=== PATIENT | female | born 1980 | race Hispanic/Latino ===

== ENCOUNTER 2018-07-21 18:31 | Emergency (ER) | payer OTHER ==
[2018-07-21] MEDS ORDERED: HYDROCODONE/APAP 5/325 MG TAB ONE ×2 (19:23→21:31)
[2018-07-21] MEDS ORDERED: IBUPROFEN 400 MG TAB ONE (20:17)
--- NOTE | 2018-07-21 20:45 | RAD REPORT ---
EXAM DESCRIPTION: RAD - Ankle Right 3 View - 07/21/2018 7:30 pm CLINICAL HISTORY: PAIN Trauma COMPARISON: Ankle Left 3 View dated 07/21/2018 FINDINGS: Mild soft tissue swelling is present about the ankle. No acute fracture or dislocation see n. Vascular calcifications evident.
--- NOTE | 2018-07-21 20:45 | RAD REPORT ---
EXAM DESCRIPTION: RAD - Ankle Left 3 View - 07/21/2018 7:30 pm CLINICAL HISTORY: PAIN Trauma COMPARISON: No comparisons FINDINGS: Soft tissue swelling is seen about the ankle. Small curvilinear bony density seen inferior to the distal fibula is likely avulsion fracture fragment.
--- NOTE | 2018-07-21 20:59 | ER ---
Nurse's Notes [facility] Name: Lila Mcgee Age: 37 yrs Sex: Female : 1980 Arrival Date: 07/21/2018 Time: 18:39 Bed 13 Private MD: Diagnosis: Sprain of other ligament of right ankle;Stress fracture, left ankle Presentation: 07/21 18:35 Presenting complaint: EMS states: Pt. was at [employer] trying out the treadmill and when rb1 she went to get off she twisted both ankles and heard a pop. No deformities noted. Pt. denies hitting her head or LOC. A \T\ O x 4, vital signs were stable. BGL 404, pt. did not take any insulin this morning. NKDA. Administered Tylenol 1000 mg PO x 1. Pain 8/10. Transition of care: patient was not received from another setting of care. Onset of symptoms was July 21, 2018 at 18:15. Risk Assessment: Do you want to hurt yourself or someone else? Patient reports no desire to harm self or others. Initial Sepsis Screen: Does the patient meet any 2 criteria? No. Patient's initial sepsis screen is negative. Does the patient have a suspected source of infection? No. Patient's initial sepsis screen is negative. Care prior to arrival: Medication(s) given: Tylenol, 1000 mg. 18:35 Method Of Arrival: EMS: [facility] rb1 18:35 Acuity: [place] 3 rb1 Triage Assessment: 18:35 General: Appears distressed, uncomfortable, obese, Behavior is cooperative, anxious, rb1 crying. Pain: Complains of pain in bilateral ankles Pain currently is 8 out of 10 on a pain scale. Aggravated by weight bearing. Neuro: Level of Consciousness is awake, alert, obeys commands, Oriented to person, place, time, situation. Cardiovascular: Capillary refill < 3 seconds is brisk in bilateral toes. Respiratory: Airway is patent Respiratory effort is even, unlabored, Respiratory pattern is regular, symmetrical. GI: No signs and/or symptoms were reported involving the gastrointestinal system. : No signs and/or symptoms were reported regarding the genitourinary system. Derm: Skin is dry, Skin is normal, Skin temperature is warm. Musculoskeletal: Range of motion: limited in bilateral ankles. 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 - Social history:: Smoking status: Patient/guardian denies using tobacco. - Ebola Screening: : Patient negative for fever greater than or equal to 101.5 degrees Fahrenheit, and additional compatible Ebola Virus Disease symptoms. Screenin:35 Abuse screen: Denies threats or abuse. Nutritional screening: No deficits noted. rb1 Tuberculosis screening: No symptoms or risk factors identified. Fall Risk Fall in past 12 months (25 points). Secondary diagnosis (15 points) impaired mobility, No IV (0 pts). Ambulatory Aid- None/Bed Rest/Nurse Assist (0 pts). Gait- Impaired (20 pts.). Mental Status- Oriented to own ability (0 pts). Total Rocha Fall Scale indicates High Risk Score (45 or more points). Fall prevention measures have been instituted. Side Rails Up X 2 Placed Close to Nursing Station 1:1 Attendant Assigned Frequent Obs/Assessments Occuring Family Present and informed to notify staff if the need to leave the bedside As available patient and family educated on Fall Prevention Program and Strategies. Assessment: 18:35 General: See triage assessment. rb1 19:15 Reassessment: Patient appears in no apparent distress at this time. Patient and/or jb4 family updated on plan of care and expected duration. Pain level reassessed. Patient is alert, oriented x 3, equal unlabored respirations, skin warm/dry/pink. 20:07 Reassessment: Patient appears in no apparent distress at this time. Patient and/or jb4 family updated on plan of care and expected duration. Pain level reassessed. Patient is alert, oriented x 3, equal unlabored respirations, skin warm/dry/pink. Pt reports a decrease in pain to the right ankle, and an increase to the left, provider notified, see [facility] for orders. 21:37 Reassessment: Patient appears in no apparent distress at this time. Patient and/or jb4 family updated on plan of care and expected duration. Pain level reassessed. Patient is alert, oriented x 3, equal unlabored respirations, skin warm/dry/pink. Pt discharged via wheelchair with significant other. Provider checked Orthoglass splint. Verbalized understanding of discharge instructions. Vital Signs: 18:35 BP 157 / 98; Pulse 89; Resp 20; Temp 97.6(O); Pulse Ox 100% on R/A; Weight 107.5 kg rb1 (R); Height 5 ft. 8 in. (172.72 cm) (R); Pain 8/10; 19:30 BP 119 / 66; Pulse 92; Resp 16; Pulse Ox 99% on R/A; jb4 21:00 BP 136 / 74; Pulse 99; Resp 16; Pulse Ox 100% on R/A; jb4 18:35 Body Mass Index 36.04 (107.50 kg, 172.72 cm) [facility] ED Course: 18:35 Arm band placed on right wrist. rb1 18:35 Patient has correct armband on for positive identification. Bed in low position. Call rb1 light in reach. Side rails up X 1. Pulse ox on. NIBP on. 18:39 Patient arrived in ED. rb1 18:43 Triage completed. rb1 18:43 Maged Ly MD is Attending Physician. gs 18:56 Report given to JEANMARIE Espinoza. rb1 19:08 Roger Perla, RN is Primary Nurse. jb4 19:28 Ankle Left 3 View XRAY In Process Unspecified. EDMS 19:28 Ankle Right 3 View XRAY In Process Unspecified. EDMS 20:58 Shaun Powell MD is Referral Physician. gs 21:17 Orthoglass splint: Posterior short lleg splint applied on left leg. oe 21:40 No provider procedures requiring assistance completed. Patient did not have IV access jb4 during this emergency room visit. Administered Medications: 19:15 Drug: [place] 5 mg-325 mg 1 tabs Route: PO; jb4 20:07 Follow up: Response: PT reports pain has improved in the right ankle but is getting jb4 worse in the left. Provider notified. 20:07 Drug: Motrin 800 mg Route: PO; jb4 20:53 Follow up: Response: No adverse reaction; Pain is decreased jb4 21:20 Drug: [place] 5 mg-325 mg 1 tabs Route: PO; jb4 21:42 Follow up: Response: No adverse reaction; Medication administered at discharge. jb4 Outcome: 20:58 Discharge ordered by . eleazar 21:40 Discharged to home via wheelchair, with crutches, with significant other. jb4 21:40 Condition: stable 21:40 Discharge instructions given to patient, significant other, Instructed on discharge instructions, follow up and referral plans. medication usage, crutch walking, Demonstrated understanding of instructions, follow-up care, medications, crutch walking, Prescriptions given X 1. 21:42 Patient left the ED. jb4 Signatures: Dispatcher [employer] EDMS Adela Zapata RN RN Roger Moran RN RN jb4 Naresh Kinney Gregory, MD MD gs
--- NOTE | 2018-07-21 20:59 | EDPHYS ---
Physician Documentation [facility] Name: Lila Mcgee Age: 37 yrs Sex: Female : 1980 Arrival Date: 07/21/2018 Time: 18:39 Bed 13 Private MD: ED Physician Maged Ly HPI: 07/21 20:50 This 37 yrs old Female presents to ER via EMS with complaints of Ankle Injury. gs 20:50 The patient presents with an injury, pain. The complaints affect the left ankle, right gs ankle. Onset: The symptoms/episode began/occurred acutely, just prior to arrival. Context: The problem was sustained at a store, resulted from the patient tripping, The mechanism of injury involved eversion of the affected ankle. Associated signs and symptoms: Pertinent positives: swelling, Pertinent negatives: numbness. Modifying factors: The symptoms are alleviated by nothing, the symptoms are aggravated by weight bearing, movement. Severity of symptoms: At their worst the symptoms were severe, in the emergency department the symptoms are unchanged. The patient has not experienced similar symptoms in the past. The patient has not recently seen a physician. 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 - Social history:: Smoking status: Patient/guardian denies using tobacco. - Ebola Screening: : Patient negative for fever greater than or equal to 101.5 degrees Fahrenheit, and additional compatible Ebola Virus Disease symptoms. ROS: 20:50 All other systems are negative. gs Exam: 20:50 Head/Face: Normocephalic, atraumatic. Eyes: Pupils equal round and reactive to light, gs extra-ocular motions intact. Lids and lashes normal. Conjunctiva and sclera are non-icteric and not injected. Cornea within normal limits. Periorbital areas with no swelling, redness, or edema. ENT: Nares patent. No nasal discharge, no septal abnormalities noted. Tympanic membranes are normal and external auditory canals are clear. Oropharynx with no redness, swelling, or masses, exudates, or evidence of obstruction, uvula midline. Mucous membranes moist. Neck: Trachea midline, no thyromegaly or masses palpated, and no cervical lymphadenopathy. Supple, full range of motion without nuchal rigidity, or vertebral point tenderness. No Meningismus. Chest/axilla: Normal chest wall appearance and motion. Nontender with no deformity. No lesions are appreciated. Cardiovascular: Regular rate and rhythm with a normal S1 and S2. No gallops, murmurs, or rubs. Normal PMI, no JVD. No pulse deficits. Respiratory: Lungs have equal breath sounds bilaterally, clear to auscultation and percussion. No rales, rhonchi or wheezes noted. No increased work of breathing, no retractions or nasal flaring. Abdomen/GI: Soft, non-tender, with normal bowel sounds. No distension or tympany. No guarding or rebound. No evidence of tenderness throughout. Back: No spinal tenderness. No costovertebral tenderness. Full range of motion. Skin: Warm, dry with normal turgor. Normal color with no rashes, no lesions, and no evidence of cellulitis. Neuro: Awake and alert, GCS 15, oriented to person, place, time, and situation. Cranial nerves II-XII grossly intact. Motor strength 5/5 in all extremities. Sensory grossly intact. Cerebellar exam normal. Normal gait. 20:50 Constitutional: The patient appears alert, awake, uncomfortable. 20:50 Musculoskeletal/extremity: Circulation is intact in all extremities. Sensation intact. Joints: the left ankle and right ankle displays pain at rest, painful range of motion, swelling, tenderness. Vital Signs: 18:35 BP 157 / 98; Pulse 89; Resp 20; Temp 97.6(O); Pulse Ox 100% on R/A; Weight 107.5 kg rb1 (R); Height 5 ft. 8 in. (172.72 cm) (R); Pain 8/10; 19:30 BP 119 / 66; Pulse 92; Resp 16; Pulse Ox 99% on R/A; jb4 21:00 BP 136 / 74; Pulse 99; Resp 16; Pulse Ox 100% on R/A; jb4 18:35 Body Mass Index 36.04 (107.50 kg, 172.72 cm) rb1 MDM: 19:02 Patient medically screened. 20:50 Differential diagnosis: fracture, sprain. Data reviewed: vital signs, nurses notes. Counseling: I had a detailed discussion with the patient and/or guardian regarding: the historical points, exam findings, and any diagnostic results supporting the discharge/admit diagnosis, radiology results, the need for outpatient follow up. Response to treatment: the patient's symptoms have mildly improved after treatment, and as a result, I will discharge patient. 07/21 19:08 Order name: Ankle Left 3 View XRAY 07/21 19:08 Order name: Ankle Right 3 View XRAY 07/21 20:49 Order name: Splint - Ankle: Posterior: left; Complete Time: 21:21 07/21 21:21 Order name: Crutches; Complete Time: 21:28 jb4 Administered Medications: 19:15 Drug: [place] 5 mg-325 mg 1 tabs Route: PO; jb4 20:07 Follow up: Response: PT reports pain has improved in the right ankle but is getting jb4 worse in the left. Provider notified. 20:07 Drug: Motrin 800 mg Route: PO; jb4 20:53 Follow up: Response: No adverse reaction; Pain is decreased jb4 21:20 Drug: [place] 5 mg-325 mg 1 tabs Route: PO; jb4 21:42 Follow up: Response: No adverse reaction; Medication administered at discharge. jb4 Disposition: 07/21/18 20:58 Discharged to Home. Impression: Sprain of other ligament of right ankle, Stress fracture, left ankle. - Condition is Stable. - Discharge Instructions: Ankle Sprain, [id number], Ankle Fracture, [id number]. - Prescriptions for Tylenol- Codeine #4 300-60 mg Oral Tablet - take 1 tablet by ORAL route every 6 hours As needed; 10 tablet. - Work release form, Medication Reconciliation Form, Thank You Letter, Antibiotic Education, Prescription Opioid Use form. - Follow up: Private Physician; When: 2 - 3 days; Reason: Re-evaluation by your physician. Follow up: Shaun Powell MD; When: 2 - 3 days; Reason: Re-evaluation by your physician. Signatures: Dispatcher [employer] EDMS Adela Zapata, RN RN rb1 Roger Perla RN RN jb4 Maged Ly MD MD gs Corrections: (The following items were deleted from the chart) 21:42 20:58 07/21/2018 20:58 Discharged to Home. Impression: Sprain of other ligament of jb4 right ankle; Stress fracture, left ankle. Condition is Stable. Forms are Medication Reconciliation Form, Thank You Letter, Antibiotic Education, Prescription Opioid Use. Follow up: Private Physician; When: 2 - 3 days; Reason: Re-evaluation by your physician. Follow up: Shaun Powell; When: 2 - 3 days; Reason: Re-evaluation by your physician. gs
[2018-07-21 22:18] VITALS: TEMP 97.6
[2018-07-21 22:20] VITALS: BP 136/74; O2SAT 100
== END 2018-07-21 21:42 | disposition home or self-care (01) ==
LOC: ER 18:31
PROC: 2W3RX1Z Immobilization of Left Lower Leg using Splint (ICD-10-PCS; principal; 2018-07-21)
DX: S93.491A Sprain of other ligament of right ankle, initial encounter (principal); M84.372A Stress fracture, left ankle, initial encounter for fracture; W01.0XXA Fall on same level from slipping, tripping and stumbling without subsequent striking against object, initial encounter; Y92.512 Supermarket, store or market as the place of occurrence of the external cause; E11.9 Type 2 diabetes mellitus without complications; E03.9 Hypothyroidism, unspecified; F41.9 Anxiety disorder, unspecified; Z79.4 Long term (current) use of insulin
CPT/HCPCS: 99284

== ENCOUNTER 2019-05-18 23:35 | Emergency (ER) | payer OTHER ==
[2019-05-19] MEDS ORDERED: MORPHINE 4 MG/ML SYR ONE ×2 (00:23→01:43)
[2019-05-19] MEDS ORDERED: ONDANSETRON 4 MG/2 ML VIAL ONE ×2 (00:23→01:43)
[2019-05-19] MEDS ORDERED: MAGNE/ALUM HYDROXD 30 ML UCUP ONE (00:34)
[2019-05-19] MEDS ORDERED: LIDOCAINE VISCOUS 2% SOLN 15 ML UDC ONE (00:34)
[2019-05-19 00:42] LABS: Absolute Lymphocytes (CBC) 1.7 K/uL (0.7-4.9); Hematocrit 41.1 % (36.0-45.0); Lymphocytes % 25.3 % (15.3-44.8); MPV 8.6 fL (7.6-11.3); Protime INR 0.97
[2019-05-19 01:11] LABS: ALT/SGPT 32 U/L (12-78); AST/SGOT 52 U/L (15-37); Albumin 3.5 g/dL (3.4-5.0); Alkaline Phosphatase 50 U/L (45-117); BUN Blood Urea Nitrogen 12 mg/dL (7-18); Bicarbonate 23 mmol/L (21-32); Bilirubin Direct 0.1 mg/dL (0-0.2); Bilirubin Total 0.4 mg/dL (0.2-1.0); Glucose Level 215 mg/dL (74-106); Potassium 3.7 mmol/L (3.5-5.1); Protein, Total 7.2 g/dL (6.4-8.2); Sodium Level 137 mmol/L (136-145)
[2019-05-19 01:12] LABS: Magnesium 1.9 mg/dL (1.8-2.4); NT PRO-BNP 16 pg/mL (<125); Troponin (Emerg Dept Use Only) < 0.02 ng/mL (0.0-0.045)
[2019-05-19 01:39] LABS: Lipase 118 U/L (73-393)
[2019-05-19] MEDS ORDERED: MORPHINE 2 MG/ML SYR ONE (03:13)
--- NOTE | 2019-05-19 03:32 | EDPHYS ---
Physician Documentation [facility] Name: Lila Mcgee Age: 38 yrs Sex: Female : 1980 Arrival Date: 05/18/2019 Time: 23:37 Bed 20 Private MD: ED Physician Andrea Robison HPI: 05/19 01:28 This 38 yrs old Female presents to ER via Ambulatory with complaints of Chest tw4 Pain, Abdominal Pain, Nausea. 01:28 The patient or guardian reports chest pain that is located primarily in the anterior tw4 chest wall. The pain does not radiate. Associated signs and symptoms: The patient has no apparent associated signs or symptoms. The chest pain is described as dull. Modifying factors: The symptoms are alleviated by nothing. the symptoms are aggravated by nothing. The patient has not experienced similar symptoms in the past. 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 - Coronavirus screen:: The patient has NOT traveled to [place] in the past 14 days. Proceed with normal triage process as indicated. - Social history:: Smoking status: Patient denies any tobacco usage or history of. Patient/guardian denies using alcohol, street drugs, IV drugs. - Ebola Screening: : No symptoms or risks identified at this time. ROS: 05/19 01:28 Constitutional: Negative for fever, chills, and weight loss, Eyes: Negative for injury, tw4 pain, redness, and discharge, Neck: Negative for injury, pain, and swelling, Respiratory: Negative for shortness of breath, cough, wheezing, and pleuritic chest pain, Back: Negative for injury and pain, MS/Extremity: Negative for injury and deformity, Skin: Negative for injury, rash, and discoloration, Neuro: Negative for headache, weakness, numbness, tingling, and seizure. Cardiovascular: Positive for chest pain, Negative for edema, orthopnea, palpitations, paroxysmal nocturnal dyspnea. Abdomen/GI: Positive for abdominal pain, nausea, Negative for nausea and vomiting, nausea, vomiting, and diarrhea, vomiting, diarrhea, constipation, abdominal cramps, abdominal distension, anorexia, dysphagia, hematemesis, black/tarry stool, rectal pain. Exam: :28 Constitutional: This is a well developed, well nourished patient who is awake, alert, tw4 and in no acute distress. Head/Face: Normocephalic, atraumatic. Chest/axilla: Normal chest wall appearance and motion. Nontender with no deformity. No lesions are appreciated. Cardiovascular: Regular rate and rhythm with a normal S1 and S2. No gallops, murmurs, or rubs. Normal PMI, no JVD. No pulse deficits. Respiratory: Lungs have equal breath sounds bilaterally, clear to auscultation and percussion. No rales, rhonchi or wheezes noted. No increased work of breathing, no retractions or nasal flaring. Back: No spinal tenderness. No costovertebral tenderness. Full range of motion. MS/ Extremity: Pulses equal, no cyanosis. Neurovascular intact. Full, normal range of motion. Neuro: Awake and alert, GCS 15, oriented to person, place, time, and situation. Cranial nerves II-XII grossly intact. Motor strength 5/5 in all extremities. Sensory grossly intact. Cerebellar exam normal. Normal gait. :28 Abdomen/GI: Inspection: abdomen appears normal, Bowel sounds: normal, Palpation: mild abdominal tenderness, in the epigastric area. Vital Signs: 05/18 23:50 BP 150 / 102; Pulse 95; Resp 18; Temp 97.6; Pulse Ox 97% on R/A; Weight 92.99 kg; mg2 Height 5 ft. 8 in. (172.72 cm); Pain 11/14; 05/19 01:30 BP 115 / 79; Pulse 18; Resp 98; Pulse Ox 99% on R/A; wh 02:30 BP 121 / 70; Pulse 97; Resp 18; Pulse Ox 100% on R/A; wh 03:30 BP 121 / 80; Pulse 99; Resp 18; Pulse Ox 96% on R/A; 05/18 23:50 Body Mass Index 31.17 (92.99 kg, 172.72 cm) mg2 MDM: 05/18 23:50 Patient medically screened. tw05/19 03:27 Differential diagnosis: cholecystitis, Cholelithiasis costochondritis, esophagitis, tw4 gastritis, gastroesophageal reflux disease (GERD), pancreatitis, peptic ulcer disease. HEART Score: History: Slightly Suspicious (0), ECG: Normal (0), Age: < or = 45 years (0), Risk Factors: No Risk Factors Known (0), Troponin: < or = 1 x Normal Limit (0), Total Score = 0. Data reviewed: vital signs, nurses notes. Data reviewed: lab test result(s), cardiac enzymes, CBC, electrolytes, hepatic panel, radiologic studies, CT scan, plain films. Data interpreted: Pulse oximetry: Interpretation: normal. Test interpretation: by ED physician or midlevel provider: ECG, plain radiologic studies. Counseling: I had a detailed discussion with the patient and/or guardian regarding: the historical points, exam findings, and any diagnostic results supporting the discharge/admit diagnosis, lab results, radiology results. 05/18 23:52 Order name: Basic Metabolic Panel 05/18 23:52 Order name: CBC with Diff 05/18 23:52 Order name: LFT's [facility] 05/18 23:52 Order name: Magnesium 05/18 23:52 Order name: NT PRO-BNP 05/18 23:52 Order name: PT-INR [facility] 05/18 23:52 Order name: Troponin (emerg Dept Use Only) 05/19 00:44 Order name: CBC with Automated Diff; Complete Time: 01:20 EDMS 05/19 00:44 Order name: Protime (+INR); Complete Time: 01:20 EDMS 05/19 01:27 Interpretation: Within normal limits. 05/19 01:14 Order name: Basic Metabolic Panel; Complete Time: 01:58 EDMS 05/19 01:20 Interpretation: GLUC 215; CRE 0.54. 05/19 01:14 Order name: Liver (Hepatic) Function; Complete Time: 01:58 EDMS 05/19 01:26 Interpretation: Normal except: AST 52; GLOB 3.7; A/G 0.9. 05/19 01:14 Order name: Troponin (Emerg Dept Use Only); Complete Time: 01:58 EDMS 05/19 01:27 Interpretation: Within normal limits: TROPED < 0.02. 05/19 01:14 Order name: NT PRO-BNP; Complete Time: 01:58 EDMS 05/19 01:27 Interpretation: Within normal limits: NT PRO-BNP 16. 05/19 01:14 Order name: Magnesium; Complete Time: 01:58 EDMS 05/19 01:28 Interpretation: Within normal limits: MG 1.9. 05/18 23:52 Order name: XRAY Chest (1 view) 05/18 23:52 Order name: EKG; Complete Time: 23:53 05/18 23:52 Order name: Cardiac monitoring; Complete Time: 00:34 05/18 23:52 Order name: EKG - Nurse/Tech; Complete Time: 00:34 05/18 23:52 Order name: IV Saline Lock; Complete Time: 00:34 05/18 23:52 Order name: Labs collected and sent; Complete Time: 00:34 05/18 23:52 Order name: O2 Per Protocol; Complete Time: 00:34 05/18 23:52 Order name: O2 Sat Monitoring; Complete Time: 00:34 05/19 01:28 Order name: Lipase 05/19 01:40 Order name: Lipase; Complete Time: 01:58 EDMS 05/19 02:02 Order name: CT Abd/Pelvis - IV Contrast Only tw4 EC:52 Rate is 88 beats/min. Rhythm is regular. QRS Keyes is Normal. NM interval is normal. QRS tw4 interval is normal. QT interval is normal. No Q waves. T waves are Normal. No ST changes noted. Clinical impression: Normal ECG. Interpreted by me. Reviewed by me. Administered Medications: 00:34 Drug: GI Cocktail without - (Maalox Suspension 30 ml, Lidocaine Liquid 2 % 15 wh ml) Route: PO; 03:55 Follow up: Response: No adverse reaction 01:42 Drug: morphine 4 mg Route: IVP; Site: right antecubital; 03:13 Follow up: Response: No adverse reaction; Pain is decreased; RASS: Alert and Calm (0) 01:44 Drug: Zofran 4 mg Route: IVP; Site: right antecubital; 03:13 Follow up: Response: No adverse reaction; Nausea is decreased 03:14 Drug: morphine 2 mg Route: IVP; Site: right antecubital; 03:53 Follow up: Response: No adverse reaction; Pain is decreased; RASS: Alert and Calm (0) Disposition: 05/19/19 03:31 Discharged to Home. Impression: Gastritis, unspecified, without bleeding, Abdominal tenderness. - Condition is Stable. - Discharge Instructions: Gastritis, Adult, Abdominal Pain, Adult, [id number]. - Prescriptions for Bentyl 20 mg Oral Tablet - take 1 tablet by ORAL route every 6 hours As needed; 20 tablet. Protonix 40 mg Oral Tablet - take 1 tablet by ORAL route once daily; 30 tablet. Zofran 4 mg Oral Tablet - take 1 tablet by ORAL route every 12 hours As needed; 6 tablet. - Medication Reconciliation Form, Thank You Letter, Antibiotic Education, Prescription Opioid Use form. - Follow up: Private Physician; When: Upon discharge from the Emergency Department; Reason: Recheck today's complaints, Continuance of care, Re-evaluation by your physician. Follow up: Germán Sutherland MD; When: Upon discharge from the Emergency Department; Reason: If symptoms return, Recheck today's complaints, Continuance of care, Re-evaluation by your physician. Follow up: Baltazar Del Rio MD; When: Upon discharge from the Emergency Department; Reason: If symptoms return, Recheck today's complaints, Continuance of care, Re-evaluation by your physician. Follow up: Alberto Fernández MD; When: Upon discharge from the Emergency Department; Reason: If symptoms return, Recheck today's complaints, Continuance of care, Re-evaluation by your physician. Follow up: Seng Patricia MD; When: Upon discharge from the Emergency Department; Reason: If symptoms return, Recheck today's complaints, Continuance of care, Re-evaluation by your physician. - Problem is an ongoing problem. - Symptoms have improved. Signatures: Dispatcher [employer] EDMS HabaloAneudy Terrence, MD MD tw4 Rob Clay, RN RN mg2 Corrections: (The following items were deleted from the chart) 02:01 01:27 Within normal limits. tw4 tw4 03:32 03:31 05/19/2019 03:31 Discharged to Home. Impression: Gastritis, unspecified, without tw4 bleeding; Abdominal tenderness. Condition is Stable. Forms are Medication Reconciliation Form, Thank You Letter, Antibiotic Education, Prescription Opioid Use. Follow up: Private Physician; When: Upon discharge from the Emergency Department; Reason: Recheck today's complaints, Continuance of care, Re-evaluation by your physician. Problem is an ongoing problem. Symptoms have improved. tw4 03:55 03:32 05/19/2019 03:31 Discharged to Home. Impression: Gastritis, unspecified, without wh bleeding; Abdominal tenderness. Condition is Stable. Discharge Instructions: Gastritis, Adult, Abdominal Pain, Adult, [id number]. Prescriptions for Bentyl 20 mg Oral Tablet - take 1 tablet by ORAL route every 6 hours As needed; 20 tablet, Protonix 40 mg Oral Tablet - take 1 tablet by ORAL route once daily; 30 tablet, Zofran 4 mg Oral Tablet - take 1 tablet by ORAL route every 12 hours As needed; 6 tablet. and Forms are Medication Reconciliation Form, Thank You Letter, Antibiotic Education, Prescription Opioid Use. Follow up: Private Physician; When: Upon discharge from the Emergency Department; Reason: Recheck today's complaints, Continuance of care, Re-evaluation by your physician. Follow up: Germán Stuherland; When: Upon discharge from the Emergency Department; Reason: If symptoms return, Recheck today's complaints, Continuance of care, Re-evaluation by your physician. Follow up: Baltazar Del Rio; When: Upon discharge from the Emergency Department; Reason: If symptoms return, Recheck today's complaints, Continuance of care, Re-evaluation by your physician. Follow up: Alberto Fernández; When: Upon discharge from the Emergency Department; Reason: If symptoms return, Recheck today's complaints, Continuance of care, Re-evaluation by your physician. Follow up: Seng Patricia; When: Upon discharge from the Emergency Department; Reason: If symptoms return, Recheck today's complaints, Continuance of care, Re-evaluation by your physician. Problem is an ongoing problem. Symptoms have improved. tw4
--- NOTE | 2019-05-19 03:32 | ER ---
Nurse's Notes [facility] Name: Lila Mcgee Age: 38 yrs Sex: Female : 1980 Arrival Date: 05/18/2019 Time: 23:37 Bed 20 Private MD: Diagnosis: Gastritis, unspecified, without bleeding;Abdominal tenderness Presentation: 05/18 23:48 Presenting complaint: Patient states: i have history of pancreatitis 2 years ago, now i mg2 have epigastric, chest pain radiating to my back and diarrhea x 2 days. Transition of care: patient was not received from another setting of care. Onset of symptoms was May 18, 2019. Risk Assessment: Do you want to hurt yourself or someone else? Patient reports no desire to harm self or others. Initial Sepsis Screen: Does the patient meet any 2 criteria? No. Patient's initial sepsis screen is negative. Does the patient have a suspected source of infection? No. Patient's initial sepsis screen is negative. Care prior to arrival: None. 23:48 Method Of Arrival: Ambulatory mg2 23:48 Acuity: CLIFFORD 3 mg2 REALTIME REPORTER: 05/19 00:00 [facility] 04/2019 wh Historical: - Allergies: 05/18 23:55 tramadol; mg2 - Home Meds: 23:55 Humalog 20 units twice a day [Active]; levothyroxine oral [Active]; Omeprazole Oral mg2 [Active]; duloxetine oral oral [Active]; Dicyclomine Oral [Active]; losartan oral oral [Active]; Jardiance oral oral [Active]; Creon oral oral [Active]; pioglitazone oral oral [Active]; - PMHx: 23:55 -anxiety; Diabetes - IDDM; Gastroparesis; Hypothyroidism; Pancreatitis; Hypertension; mg2 - PSHx: 23:55 Cholecystectomy; ; mg2 - Immunization history:: Flu vaccine is not up to date. - Coronavirus screen:: The patient has NOT traveled to [place] in the past 14 days. Proceed with normal triage process as indicated. - Social history:: Smoking status: Patient denies any tobacco usage or history of. Patient/guardian denies using alcohol, street drugs, IV drugs. - Ebola Screening: : No symptoms or risks identified at this time. Screenin/12 00:00 Abuse screen: Denies threats or abuse. Denies injuries from another. Nutritional wh screening: No deficits noted. Tuberculosis screening: No symptoms or risk factors identified. Fall Risk None identified. Assessment: 00:00 General: Appears in no apparent distress. uncomfortable, Behavior is calm, cooperative, wh appropriate for age. Pain: Complains of pain in epigastric area Pain radiates to chest Pain currently is 8 out of 10 on a pain scale. Quality of pain is described as gnawing, Pain began 1 day ago. Neuro: Level of Consciousness is awake, alert, obeys commands, Oriented to person, place, time, situation, Appropriate for age. Cardiovascular: Heart tones S1 S2 Rhythm is regular. Respiratory: Airway is patent Respiratory effort is even, unlabored, Respiratory pattern is regular, symmetrical, Breath sounds are clear bilaterally. GI: Abdomen is flat, non-distended, Bowel sounds present X 4 quads. Abd is soft and non tender X 4 quads. Reports upper abdominal pain. : No signs and/or symptoms were reported regarding the genitourinary system. EENT: No signs and/or symptoms were reported regarding the EENT system. Derm: Skin is intact, is healthy with good turgor, Skin is pink, warm \T\ dry. normal. Musculoskeletal: Circulation, motion, and sensation intact. 01:29 Reassessment: Patient appears in no apparent distress at this time. No changes from previously documented assessment. Patient and/or family updated on plan of care and expected duration. Pain level reassessed. Patient is alert, oriented x 3, equal unlabored respirations, skin warm/dry/pink. 02:40 Reassessment: Patient appears in no apparent distress at this time. No changes from previously documented assessment. Patient and/or family updated on plan of care and expected duration. Pain level reassessed. Patient is alert, oriented x 3, equal unlabored respirations, skin warm/dry/pink. 03:52 Reassessment: Patient appears in no apparent distress at this time. No changes from previously documented assessment. Patient and/or family updated on plan of care and expected duration. Pain level reassessed. Patient is alert, oriented x 3, equal unlabored respirations, skin warm/dry/pink. Patient states feeling better. Patient states symptoms have improved. Vital Signs: 05/18 23:50 BP 150 / 102; Pulse 95; Resp 18; Temp 97.6; Pulse Ox 97% on R/A; Weight 92.99 kg; mg2 Height 5 ft. 8 in. (172.72 cm); Pain 8/10; 05/19 01:30 BP 115 / 79; Pulse 18; Resp 98; Pulse Ox 99% on R/A; wh 02:30 BP 121 / 70; Pulse 97; Resp 18; Pulse Ox 100% on R/A; wh 03:30 BP 121 / 80; Pulse 99; Resp 18; Pulse Ox 96% on R/A; wh 05/18 23:50 Body Mass Index 31.17 (92.99 kg, 172.72 cm) mg2 ED Course: 05/18 23:37 Patient arrived in ED. jg7 23:49 Andrea Robison MD is Attending Physician. tw4 23:50 Triage completed. mg2 23:50 Arm band placed on. mg2 05/19 00:00 Patient has correct armband on for positive identification. Placed in gown. Bed in low wh position. Call light in reach. Side rails up X 1. sports clerk on. Pulse ox on. NIBP on. 00:00 Patient maintains SpO2 saturation greater than 95% on room air. 00:06 Aneudy Salmeron is Primary Nurse. 00:15 Inserted saline lock: 20 gauge in right antecubital area, using aseptic technique. Blood collected. 03:04 CT completed. Patient tolerated procedure well. Patient moved to CT via wheelchair. Patient moved back from CT. 03:32 Germán Sutherland MD is Referral Physician. tw4 03:32 Baltazar Del Rio MD is Referral Physician. tw4 03:32 Alberto Fernández MD is Referral Physician. tw4 03:32 Seng Patricia MD is Referral Physician. tw4 03:54 No provider procedures requiring assistance completed. IV discontinued, intact, wh bleeding controlled, No redness/swelling at site. Administered Medications: 00:34 Drug: GI Cocktail without - (Maalox Suspension 30 ml, Lidocaine Liquid 2 % 15 wh ml) Route: PO; 03:55 Follow up: Response: No adverse reaction 01:42 Drug: morphine 4 mg Route: IVP; Site: right antecubital; 03:13 Follow up: Response: No adverse reaction; Pain is decreased; RASS: Alert and Calm (0) 01:44 Drug: Zofran 4 mg Route: IVP; Site: right antecubital; 03:13 Follow up: Response: No adverse reaction; Nausea is decreased 03:14 Drug: morphine 2 mg Route: IVP; Site: right antecubital; 03:53 Follow up: Response: No adverse reaction; Pain is decreased; RASS: Alert and Calm (0) Outcome: 03:31 Discharge ordered by . [email or web address] 03:54 Discharged to home ambulatory, with family. 03:54 Condition: stable 03:54 Discharge instructions given to patient, family, Instructed on discharge instructions, follow up and referral plans. medication usage, POC Demonstrated understanding of instructions, follow-up care, medications, POC Prescriptions given X 3. 03:55 Patient left the ED. Signatures: Humberto Morris Winsy Andrea Robison MD MD tw4 Rob Clay RN RN [facility] Ashley [email or web address]
--- NOTE | 2019-05-19 08:53 | EKG ---
Test Date: 2019-05-19 Test Time: 00:23:47 Job Putter Up And Ticket Preparer: BELLE MEASUREMENT RESULTS: Intervals: Rate: 88 HI: 142 QRSD: 82 QT: 378 QTc: 457 Garrison: P: 54 HI: 142 QRS: 76 T: 75 INTERPRETIVE STATEMENTS: Normal sinus rhythm Normal ECG Compared to ECG 03/04/2017 17:27:30 Sinus tachycardia no longer present Electronically Signed On 05-19-19 08:52:21 BAT CARRIER by Xavi Brock
--- NOTE | 2019-05-19 09:18 | RAD REPORT ---
EXAM DESCRIPTION: RAD - Chest Single View - 05/19/2019 12:49 am CLINICAL HISTORY: CHEST PAIN COMPARISON: <Comparisons> TECHNIQUE: AP portable chest image was obtained 05/19/2019 12:49 am . FINDINGS: Low lung volumes noted. Lung lacy are clear. Interstitial pattern is similar to comparis on when adjusting for shallow inspiration. Heart and vasculature are normal. No measurable pleural ef fusion and no pneumothorax. No acute bony abnormality seen. No acute aortic findings suspected. IMPRESSION: No acute cardiopulmonary process.
--- NOTE | 2019-05-19 10:36 | RAD REPORT ---
EXAM DESCRIPTION: CT - Abdomen Pelvis W Contrast - 05/19/2019 5:19 am CLINICAL HISTORY: The patient is 38 years old and is Female; ABD PAIN TECHNIQUE: Axial computed tomography images of the abdomen and pelvis with intravenous contrast. S agittal and coronal reformatted images were created and reviewed. This CT exam was performed using one or more of the following dose reduction techniques: automated exposure control, adjustment of t he mA and/or kV according to patient size, and/or use of iterative reconstruction technique. COMPARISON: No relevant prior studies available. FINDINGS: LUNG BASES: Unremarkable. No mass. No consolidation. ABDOMEN: LIVER: Unremarkable. No mass. GALLBLADDER AND BILE DUCTS: Surgical clips are present in the right upper quadrant, consistent w ith previous cholecystectomy. PANCREAS: No ductal dilation. No mass. SPLEEN: Unremarkable. ADRENALS: Unremarkable. No mass. KIDNEYS AND URETERS: Unremarkable. The kidneys enhance symmetrically. No obstructing renal or ur eteral calculus is seen. No hydronephrosis or hydroureter. No perinephric fluid or stranding. STOMACH AND BOWEL: The stomach is minimally fluid filled. The small bowel is normal in caliber. A moderate amount of stool is present throughout colon. There is no mucosal thickening or evidence of bowel obstruction. PELVIS: APPENDIX: The appendix is normal in caliber without surrounding inflammation. BLADDER: The bladder is significantly distended. REPRODUCTIVE: A 2.3 cm left ovarian cyst is present. No follow-up imaging is recommended. The ut erus and right ovary are normal. ABDOMEN and PELVIS: INTRAPERITONEAL SPACE: Unremarkable. No free air. No significant fluid collection. BONES/JOINTS: No acute fracture. SOFT TISSUES: The soft tissues are normal. VASCULATURE: Unremarkable. No abdominal aortic aneurysm. LYMPH NODES: Unremarkable. No enlarged lymph nodes. IMPRESSION: No acute findings on this contrasted CT of the abdomen and pelvis to explain the patient 's symptoms. Electronically signed by: Diana Topete MD 05/19/2019 3:14 AM GEARCASE ASSEMBLER Due to temporary technical issues with the PACS/Fluency reporting system, reports are being signed by the in house radiologist as a courtesy to ensure prompt reporting. The interpreting radiologist is f ully responsible for the content of the report.
[2019-05-20 16:30] VITALS: TEMP 97.6
[2019-05-20 16:36] VITALS: BP 121/80; O2SAT 96
== END 2019-05-19 03:55 | disposition home or self-care (01) ==
LOC: ER 23:35
DX: K29.70 Gastritis, unspecified, without bleeding (principal); R10.819 Abdominal tenderness, unspecified site; I10 Essential (primary) hypertension; E11.9 Type 2 diabetes mellitus without complications; E03.9 Hypothyroidism, unspecified; F41.9 Anxiety disorder, unspecified; Z88.5 Allergy status to narcotic agent
CPT/HCPCS: 93005; 85025; 80048; 36415; 83735; 85610; 80076; 84484; 83690; 83880; 74177; 71045; 96375; 96374; 99285; Q9967; J2270; J2405

== ENCOUNTER 2020-01-15 22:53 | Emergency (ER) | payer BC, OTHER ==
--- NOTE | 2020-01-15 23:28 | EDPHYS ---
Physician Documentation [facility] Name: Lila Mcgee Age: 39 yrs Sex: Female : 1980 Arrival Date: 01/15/2020 Time: 22:56 Bed 2 Private MD: ED Physician Andrea Robison HPI: 01/14 23:21 This 39 yrs old Female presents to ER via Unassigned with complaints of snw Allergic Reaction. 23:21 The patient presents with itching, localized swelling, nasal itching. Onset: The snw symptoms/episode began/occurred suddenly, today, after taking Carolina and albuterol, pt recently started Bactrim for UTI. Associated signs and symptoms: Pertinent positives: itching. Possible causes: At home the patient or guardian has treated the symptoms with Benadryl, Tonya tablets and Emetrol. Severity of symptoms: At their worst the symptoms were moderate in the emergency department the symptoms have improved moderately. It is unknown whether or not the patient has had similar symptoms in the past. The patient has been recently seen by a physician: the patient's primary care provider. no fever. Historical: - Allergies: 23:09 tramadol; jb4 23:09 IV contrast; jb4 - Home Meds: 23:09 Creon Oral [Active]; Dicyclomine Oral [Active]; duloxetine Oral [Active]; Humalog 20 jb4 units twice a day [Active]; Jardiance Oral [Active]; levothyroxine oral [Active]; losartan Oral [Active]; Omeprazole Oral [Active]; pioglitazone Oral [Active]; - PMHx: 23:09 -anxiety; Diabetes - IDDM; Gastroparesis; Hypertension; Hypothyroidism; Pancreatitis; jb4 - PSHx: 23:09 ; Cholecystectomy; jb4 - Immunization history:: Adult Immunizations up to date. - Social history:: Smoking status: Reported history of juuling and/or vaping. Patient/guardian denies using alcohol, street drugs. ROS: 23:19 Neck: Negative for injury, pain, and swelling, Cardiovascular: Negative for chest pain, snw palpitations, and edema, Respiratory: Negative for shortness of breath, cough, wheezing, and pleuritic chest pain, Abdomen/GI: Negative for abdominal pain, nausea, vomiting, diarrhea, and constipation, Back: Negative for injury and pain, : Negative for injury, bleeding, discharge, and swelling, MS/Extremity: Negative for injury and deformity, Neuro: Negative for headache, weakness, numbness, tingling, and seizure. 23:19 Abdomen/GI: Positive for upper abdominal pain and nausea and lower back pain, Denies vomiting, diarrhea, and constipation. 23:19 Constitutional: Positive for body aches, poor PO intake. 23:19 Eyes: Positive for swelling. 23:19 ENT: Positive for tongue feels dry. 23:19 Skin: Positive for itching. Exam: 23:19 Constitutional: This is a well developed, well nourished patient who is awake, alert, snw and in no acute distress. ENT: Nares patent. No nasal discharge, no septal abnormalities noted. Tympanic membranes are normal and external auditory canals are clear. Oropharynx with no redness, swelling, or masses, exudates, or evidence of obstruction, uvula midline. Mucous membranes moist. Neck: Trachea midline, no thyromegaly or masses palpated, and no cervical lymphadenopathy. Supple, full range of motion without nuchal rigidity, or vertebral point tenderness. No Meningismus. Chest/axilla: Normal chest wall appearance and motion. Nontender with no deformity. No lesions are appreciated. Cardiovascular: Regular rate and rhythm with a normal S1 and S2. No gallops, murmurs, or rubs. Normal PMI, no JVD. No pulse deficits. Respiratory: Lungs have equal breath sounds bilaterally, mild rhonchi to auscultation. No rales or wheezes noted. No increased work of breathing, no retractions or nasal flaring. Pt using symbicort and albuterol Abdomen/GI: Soft, non-tender, with normal bowel sounds. No distension or tympany. No guarding or rebound. No evidence of tenderness throughout. Back: No spinal tenderness. No costovertebral tenderness. Full range of motion. Skin: Warm, dry with normal turgor. Normal color with no rashes, no lesions, and no evidence of cellulitis. MS/ Extremity: Pulses equal, no cyanosis. Neurovascular intact. Full, normal range of motion. Neuro: Awake and alert, GCS 15, oriented to person, place, time, and situation. Cranial nerves II-XII grossly intact. Motor strength 5/5 in all extremities. Sensory grossly intact. Cerebellar exam normal. Normal gait. Psych: Awake, alert, with orientation to person, place and time. Behavior, mood, and affect are within normal limits. 23:19 Head/face: Noted is swelling, that is mild, of the right eye, right ear, left ear and left eye. Vital Signs: 23:09 BP 144 / 97; Pulse 98; Resp 16; Temp 98.4(TE); Pulse Ox 100% on R/A; Weight 90.72 kg jb4 (R); Height 5 ft. 8 in. (172.72 cm) (R); Pain 7/10; 23:09 Body Mass Index 30.41 (90.72 kg, 172.72 cm) jb4 MDM: 23:18 Patient medically screened. snw 23:29 Data reviewed: vital signs, nurses notes. Data interpreted: Pulse oximetry: on room air snw is 100 %. Interpretation: normal. Counseling: I had a detailed discussion with the patient and/or guardian regarding: the historical points, exam findings, and any diagnostic results supporting the discharge/admit diagnosis, the need for outpatient follow up, for definitive care, to return to the emergency department if symptoms worsen or persist or if there are any questions or concerns that arise at home. Special discussion: Based on the patient's Hx, exam, and Dx evaluation, there is no indication for emergent surgery or inpatient Tx. It is understood by the patient/guardian that if the Sx's persist or worsen they need to return immediately for re-evaluation. I have referred the patient to see his PCP for further evaluation of high blood pressure. Based on the history and exam findings, there is no indication for further emergent testing or inpatient evaluation. I discussed with the patient/guardian the need to see the primary care provider for further evaluation of the symptoms. Administered Medications: 23:40 Drug: Decadron - Dexamethasone 10 mg {Note: given PO per Providers orders.} Route: IVP; jb4 Site: Other; 23:53 Follow up: Response: No adverse reaction jb4 23:40 Drug: LevaQUIN 500 mg Route: PO; jb4 23:53 Follow up: Response: No adverse reaction jb4 23:40 Drug: Pepcid 20 mg Route: PO; jb4 23:53 Follow up: Response: No adverse reaction [facility] 23:52 Drug: Flexeril 10 mg Route: PO; [facility] 23:54 Follow up: Response: No adverse reaction 4 Disposition: 01/15 20:24 Co-signature as Attending Physician, Andrea Robison MD I agree with the assessment and 4 plan of care. Disposition: 01/15/20 23:27 Discharged to Home. Impression: Acute bronchitis, Allergy, unspecified, UTI (diagnosed elsewhere). - Condition is Stable. - Discharge Instructions: Acute Bronchitis, Adult, Allergies, Adult, Hypertension, Urinary Tract Infection, Adult, Rehydration, Adult. - Prescriptions for Levaquin 500 mg Oral Tablet - take 1 tablet by ORAL route once daily for 7 days; 7 tablet. Pepcid 20 mg Oral Tablet - take 1 tablet by ORAL route once daily; 20 tablet. Cyclobenzaprine 10 mg Oral Tablet - take 1 tablet by ORAL route every 8 hours As needed; 30 tablet. - Work release form, Medication Reconciliation Form, Thank You Letter, Antibiotic Education, Prescription Opioid Use form. - Follow up: Emergency Department; When: As needed; Reason: Worsening of condition. Follow up: Private Physician; When: 2 - 3 days; Reason: Recheck today's complaints, Continuance of care, Re-evaluation by your physician. - Problem is new. - Symptoms are unchanged. - Notes: Stop Bactrim Signatures: Ana Reyes, KELLI-C FIRE APPARATUS SPRINKLER INSPECTOR-Csnw Roger Perla, RN RN 4 Andrea Robison MD MD 4 Corrections: (The following items were deleted from the chart) 01/14 23:31 23:19 Constitutional: This is a well developed, well nourished patient who is awake, snw alert, and in no acute distress. ENT: Nares patent. No nasal discharge, no septal abnormalities noted. Tympanic membranes are normal and external auditory canals are clear. Oropharynx with no redness, swelling, or masses, exudates, or evidence of obstruction, uvula midline. Mucous membranes moist. Neck: Trachea midline, no thyromegaly or masses palpated, and no cervical lymphadenopathy. Supple, full range of motion without nuchal rigidity, or vertebral point tenderness. No Meningismus. Chest/axilla: Normal chest wall appearance and motion. Nontender with no deformity. No lesions are appreciated. Cardiovascular: Regular rate and rhythm with a normal S1 and S2. No gallops, murmurs, or rubs. Normal PMI, no JVD. No pulse deficits. Respiratory: Lungs have equal breath sounds bilaterally, clear to auscultation and percussion. No rales, rhonchi or wheezes noted. No increased work of breathing, no retractions or nasal flaring. Abdomen/GI: Soft, non-tender, with normal bowel sounds. No distension or tympany. No guarding or rebound. No evidence of tenderness throughout. Back: No spinal tenderness. No costovertebral tenderness. Full range of motion. Skin: Warm, dry with normal turgor. Normal color with no rashes, no lesions, and no evidence of cellulitis. MS/ Extremity: Pulses equal, no cyanosis. Neurovascular intact. Full, normal range of motion. Neuro: Awake and alert, GCS 15, oriented to person, place, time, and situation. Cranial nerves II-XII grossly intact. Motor strength 5/5 in all extremities. Sensory grossly intact. Cerebellar exam normal. Normal gait. Psych: Awake, alert, with orientation to person, place and time. Behavior, mood, and affect are within normal limits. snw 23:59 23:27 01/15/2020 23:27 Discharged to Home. Impression: Acute bronchitis; Allergy, jb4 unspecified; UTI (diagnosed elsewhere). Condition is Stable. Forms are Medication Reconciliation Form, Thank You Letter, Antibiotic Education, Prescription Opioid Use. Follow up: Emergency Department; When: As needed; Reason: Worsening of condition. Follow up: Private Physician; When: 2 - 3 days; Reason: Recheck today's complaints, Continuance of care, Re-evaluation by your physician. Problem is new. Symptoms are unchanged. snw
--- NOTE | 2020-01-15 23:28 | ER ---
Nurse's Notes [facility] Name: Lila Mcgee Age: 39 yrs Sex: Female : 1980 Arrival Date: 01/15/2020 Time: 22:56 Bed 2 Private MD: Diagnosis: Acute bronchitis;Allergy, unspecified;UTI (diagnosed elsewhere) Presentation: 01/14 23:09 Chief complaint: Patient states: I took a new medication tonight and I have been jb4 itching since. I took two Benadryl and it has not helped. 23:09 Coronavirus screen: Client denies travel out of the [place] in the last 14 days. At this jb4 time, the client does not indicate any symptoms associated with coronavirus-19. Ebola Screen: No symptoms or risks identified at this time. Onset: The symptoms/episode began/occurred gradually. Anaphylaxis evaluation, no signs or symptoms of anaphylaxis were noted. Initial Sepsis Screen: Does the patient meet any 2 criteria? No. Patient's initial sepsis screen is negative. Does the patient have a suspected source of infection? No. Patient's initial sepsis screen is negative. Risk Assessment: Do you want to hurt yourself or someone else? Patient reports no desire to harm self or others. Onset of symptoms was January 15, 2020. Transition of care: patient was not received from another setting of care. 23:09 Method Of Arrival: Ambulatory jb4 23:09 Acuity: CLIFFORD 4 jb4 Historical: - Allergies: 23:09 tramadol; jb4 23:09 IV contrast; jb4 - Home Meds: 23:09 Creon Oral [Active]; Dicyclomine Oral [Active]; duloxetine Oral [Active]; Humalog 20 jb4 units twice a day [Active]; Jardiance Oral [Active]; levothyroxine oral [Active]; losartan Oral [Active]; Omeprazole Oral [Active]; pioglitazone Oral [Active]; - PMHx: 23:09 -anxiety; Diabetes - IDDM; Gastroparesis; Hypertension; Hypothyroidism; Pancreatitis; jb4 - PSHx: 23:09 ; Cholecystectomy; jb4 - Immunization history:: Adult Immunizations up to date. - Social history:: Smoking status: Reported history of juuling and/or vaping. Patient/guardian denies using alcohol, street drugs. Screenin:09 Abuse screen: Denies threats or abuse. Nutritional screening: No deficits noted. jb4 Tuberculosis screening: No symptoms or risk factors identified. Fall Risk None identified. Assessment: 23:09 General: Appears in no apparent distress. comfortable, Behavior is calm, cooperative. jb4 Pain: Complains of pain in left low back Pain does not radiate. Pain currently is 7 out of 10 on a pain scale. Neuro: Level of Consciousness is awake, alert, obeys commands, Oriented to person, place, time, situation. Cardiovascular: Patient's skin is warm and dry. Respiratory: Airway is patent Respiratory effort is even, unlabored, Respiratory pattern is regular, symmetrical. GI: No signs and/or symptoms were reported involving the gastrointestinal system. : No signs and/or symptoms were reported regarding the genitourinary system. EENT: No signs and/or symptoms were reported regarding the EENT system. Derm: Skin is intact, Skin is pink, warm \T\ dry. Musculoskeletal: Circulation, motion, and sensation intact. Range of motion: intact in all extremities. 23:58 Reassessment: Patient appears in no apparent distress at this time. Patient and/or jb4 family updated on plan of care and expected duration. Pain level reassessed. Patient is alert, oriented x 3, equal unlabored respirations, skin warm/dry/pink. Vital Signs: 23:09 BP 144 / 97; Pulse 98; Resp 16; Temp 98.4(TE); Pulse Ox 100% on R/A; Weight 90.72 kg jb4 (R); Height 5 ft. 8 in. (172.72 cm) (R); Pain 7/10; 23:09 Body Mass Index 30.41 (90.72 kg, 172.72 cm) jb4 ED Course: 22:56 Patient arrived in ED. cf2 23:09 Arm band placed on right wrist. jb4 23:09 Patient has correct armband on for positive identification. Bed in low position. Call [facility] light in reach. Side rails up X 1. Pulse ox on. NIBP on. 23:18 Ana Ryees FNP-C is PHCP. snw 23:18 Andrea Robison MD is Attending Physician. snw 23:19 Roger Perla, JEANMARIE is Primary Nurse. jb4 23:21 Triage completed. jb4 23:59 No provider procedures requiring assistance completed. Patient did not have IV access jb4 during this emergency room visit. Administered Medications: 23:40 Drug: Decadron - Dexamethasone 10 mg {Note: given PO per Providers orders.} Route: IVP; jb4 Site: Other; 23:53 Follow up: Response: No adverse reaction jb4 23:40 Drug: LevaQUIN 500 mg Route: PO; jb4 23:53 Follow up: Response: No adverse reaction jb4 23:40 Drug: Pepcid 20 mg Route: PO; jb4 23:53 Follow up: Response: No adverse reaction jb4 23:52 Drug: Flexeril 10 mg Route: PO; jb4 23:54 Follow up: Response: No adverse reaction jb4 Outcome: 23:27 Discharge ordered by . snbryson 23:59 Discharged to home ambulatory, with family. jb4 23:59 Condition: stable 23:59 Discharge instructions given to patient, family, Instructed on discharge instructions, follow up and referral plans. medication usage, Demonstrated understanding of instructions, follow-up care, medications, Prescriptions given X 3. 23:59 Patient left the ED. jb4 Signatures: Ana Reyes, TELEVISION REPAIRER-C TELEVISION REPAIRER-Csnw Roger Perla, RN RN jb4 Maritza Hollingsworth cf2
[2020-01-15] MEDS ORDERED: levoFLOXacin 500 MG TAB ONE ×2 (23:39→23:41)
[2020-01-15] MEDS ORDERED: dexAMETHasone 4 MG/ML VIAL ONE ×2 (23:41)
[2020-01-15] MEDS ORDERED: FAMOTIDINE 20 MG TAB ONE (23:43)
[2020-01-16] MEDS ORDERED: CYCLOBENZAPRINE 10 MG TAB ONE (00:03)
[2020-01-16 00:45] VITALS: BP 144/97; TEMP 98.4; O2SAT 100
== END 2020-01-15 23:59 | disposition home or self-care (01) ==
LOC: ER 22:53
DX: J20.9 Acute bronchitis, unspecified (principal); I10 Essential (primary) hypertension; E11.9 Type 2 diabetes mellitus without complications; F41.9 Anxiety disorder, unspecified; E03.9 Hypothyroidism, unspecified; Z79.4 Long term (current) use of insulin; Z88.5 Allergy status to narcotic agent; Z87.891 Personal history of nicotine dependence; Z91.041 Radiographic dye allergy status
CPT/HCPCS: 96374; 99283; J1100

== ENCOUNTER 2020-01-16 13:10 | Emergency (ER) | payer BC, OTHER ==
[2020-01-16] MEDS ORDERED: NA CHLORIDE 0.9% 1,000 ML ONE (13:57)
[2020-01-16] MEDS ORDERED: ONDANSETRON 4 MG/2 ML VIAL ONE (13:57)
[2020-01-16 14:08] LABS: Absolute Lymphocytes (CBC) 0.8 K/uL (0.7-4.9); Basophils % 0.9 % (0-1.3); Hematocrit 43.8 % (36.0-45.0); Lymphocytes % 8.9 % (15.3-44.8); MPV 8.5 fL (7.6-11.3); RBC Red Blood Cell Count 5.14 M/uL (3.86-4.86)
[2020-01-16 14:44] LABS: ALT/SGPT 22 U/L (12-78); AST/SGOT 9 U/L (15-37); Albumin 3.6 g/dL (3.4-5.0); Alkaline Phosphatase 55 U/L (45-117); BUN Blood Urea Nitrogen 17 mg/dL (7-18); Bicarbonate 22 mmol/L (21-32); Bilirubin Direct < 0.1 mg/dL (0-0.2); Bilirubin Total 0.3 mg/dL (0.2-1.0); Glucose Level 242 mg/dL (74-106); Lipase 77 U/L (73-393); Potassium 4.3 mmol/L (3.5-5.1); Protein, Total 7.9 g/dL (6.4-8.2); Sodium Level 138 mmol/L (136-145)
[2020-01-16 14:46] LABS: Blood Morphology Comment NOT SEEN (NOT SEEN); Platelet Estimate ADEQ; White Blood Cell Scan OK (OK)
[2020-01-16 15:36] LABS: Urine Blood NEGATIVE (NEG); Urine Glucose 2+ (NEG); Urine Protein NEGATIVE (NEG); Urine pH 5.5 (5.0-7.0)
[2020-01-16 15:40] LABS: Urine Amorphous Sediment 2+ /HPF (NONE SEEN); Urine Bacteria 20-50 /HPF (<20); Urine Culture Reflex Order REFLEXED; Urine RBC <5 /HPF (NONE SEEN)
--- NOTE | 2020-01-16 16:06 | ER ---
Nurse's Notes [facility] Name: Lila Mcgee Age: 39 yrs Sex: Female : 1980 Arrival Date: 01/16/2020 Time: 13:14 Bed 2 Private MD: Camilo Perez V Diagnosis: Urinary tract infection, site not specified;Pruritus-allergic reaction to bactrim Presentation: 01/15 13:19 Chief complaint: Patient states: Here again for continued back pain from UTI. Nausea ll1 and itching started again. No fever. Coronavirus screen: Client denies travel out of the [place] in the last 14 days. At this time, the client does not indicate any symptoms associated with coronavirus-19. Ebola Screen: Patient denies travel to an Ebola-affected area in the 21 days before illness onset. Initial Sepsis Screen: Does the patient meet any 2 criteria? HR > 90 bpm. No. Patient's initial sepsis screen is negative. Does the patient have a suspected source of infection? Yes: Dysuria/Frequency/Urgency/UTI. Risk Assessment: Do you want to hurt yourself or someone else? Patient reports no desire to harm self or others. Onset of symptoms was January 03, 2020. 13:19 Method Of Arrival: Ambulatory ll1 13:19 Acuity: CLIFFORD 4 ll1 Historical: - Allergies: 13:18 IV contrast; ll1 13:18 tramadol; ll1 - PMHx: 13:18 -anxiety; Diabetes - IDDM; Hypertension; Pancreatitis; Hypothyroidism; Gastroparesis; ll1 lactose intolerant; Chron's; - PSHx: 13:18 ; Cholecystectomy; ll1 - Immunization history:: Flu vaccine is not up to date. - Social history:: Smoking status: Reported history of juuling and/or vaping. Patient denies any tobacco usage or history of. Screenin:00 Abuse screen: Denies threats or abuse. Denies injuries from another. Nutritional sv screening: No deficits noted. Tuberculosis screening: No symptoms or risk factors identified. Fall Risk None identified. Assessment: 13:30 General: Appears in no apparent distress. Pain: Pain currently is 7 out of 10 on a pain hb scale. Neuro: Level of Consciousness is awake, alert, obeys commands, Oriented to person, place, time, situation. Cardiovascular: Capillary refill < 3 seconds Patient's skin is warm and dry. Respiratory: Respiratory effort is even, unlabored, Respiratory pattern is regular, symmetrical. GI: Reports nausea. : No signs and/or symptoms were reported regarding the genitourinary system. EENT: No signs and/or symptoms were reported regarding the EENT system. Derm: Skin is pink, warm \T\ dry. Musculoskeletal: Reports back pain 7/10. 14:30 Reassessment: Patient appears in no apparent distress at this time. Patient and/or hb family updated on plan of care and expected duration. Pain level reassessed. Patient is alert, oriented x 3, equal unlabored respirations, skin warm/dry/pink. 15:05 Reassessment: Patient appears in no apparent distress at this time. Patient and/or ph family updated on plan of care and expected duration. Pain level reassessed. Patient is alert, oriented x 3, equal unlabored respirations, skin warm/dry/pink. Pt reports LUQ pain 8/10. 16:00 Reassessment: Patient appears in no apparent distress at this time. Patient and/or ph family updated on plan of care and expected duration. Pain level reassessed. Patient is alert, oriented x 3, equal unlabored respirations, skin warm/dry/pink. Vital Signs: 13:19 BP 144 / 89; Pulse 116; Resp 18; Temp 97.9; Pulse Ox 100% ; Weight 90.72 kg; Height 5 ll1 ft. 8 in. (172.72 cm); Pain 7/10; 14:02 Pulse 104; Resp 16; Pulse Ox 99% ; sv 15:30 BP 132 / 86; Pulse 94; Resp 18; Pulse Ox 99% on R/A; ph 17:00 BP 128 / 87; Pulse 81; Resp 16; Temp 97.6; Pulse Ox 99% on R/A; ph 13:19 Body Mass Index 30.41 (90.72 kg, 172.72 cm) ll1 ED Course: 13:14 Patient arrived in ED. mr 13:14 Camilo Perez MD is Private Physician. mr 13:21 Triage completed. ll1 13:21 Arm band placed on Patient placed in an exam room, on a stretcher. ll1 13:22 Dotty Menendez, JEANMARIE is Primary Nurse. ph 13:23 Paco Andino NP is PHCP. pm1 13:23 Matt Mccoy MD is Attending Physician. pm1 13:56 Inserted saline lock: 20 gauge in right antecubital area, using aseptic technique. hb Blood collected. 14:00 Patient has correct armband on for positive identification. Bed in low position. Call sv light in reach. Pulse ox on. NIBP on. Door closed. Warm blanket given. Pillow given. Head of bed elevated. 14:02 Awaiting lab results. sv 16:05 Camilo Perez MD is Referral Physician. pm1 16:37 No provider procedures requiring assistance completed. IV discontinued, intact, ph bleeding controlled, No redness/swelling at site. Pressure dressing applied. Administered Medications: 13:56 Drug: Zofran (Ondansetron) 4 mg Route: IVP; Site: right antecubital; ph 14:00 Follow up: Response: No adverse reaction ph 14:30 Follow up: Response: No adverse reaction hb 13:57 Drug: NS 0.9% 1000 ml Route: IV; Rate: 1000 ml; Site: right antecubital; ph 15:30 Follow up: Response: No adverse reaction; IV Status: Completed infusion; IV Intake: ph 1000ml 15:05 CANCELLED (Physician Discretion): Cipro 500 mg PO once pm1 15:05 CANCELLED (Physician Discretion): Flagyl 500 mg 100 ml IVPB at 200 ml/hr once over 30 pm1 mins Intake: 15:30 IV: 1000ml; Total: 1000ml. ph Outcome: 16:05 Discharge ordered by . pm1 16:37 Patient left the ED. ph 16:37 Discharged to home ambulatory. ph 16:37 Condition: good 16:37 Discharge instructions given to patient, Instructed on discharge instructions, follow up and referral plans. medication usage, Demonstrated understanding of instructions, follow-up care, medications, Prescriptions given X 3. Addendum: 01/19/2020 16:51 Addendum: COVID-19 Result: Negative result given to RN to notify pt. Left voice mail. h b 19:09 Addendum: COVID-19 Result: Negative result given to RN to notify pt. Notified pt of h b negative COVID 19 swab results. Pt advised that even with a negative test result they should remain in isolation until symptom free for 3 days without medication. Pt also advised to return to the ED for worsening symptoms. Signatures: Adilene Vega, RN RN Ivan, Riri mr Dotty Menendez, RN Paco Castillo ph, [employer] SALES REPRESENTATIVE pm1 Lisa Stoll, RN RN Paula Alvarado RN RN ll1
--- NOTE | 2020-01-16 16:06 | EDPHYS ---
Physician Documentation [facility] Name: Lila Mcgee Age: 39 yrs Sex: Female : 1980 Arrival Date: 01/16/2020 Time: 13:14 Bed 2 Private MD: Camilo Perez V ED Physician Matt Mccoy HPI: 01/15 13:38 This 39 yrs old Female presents to ER via Ambulatory with complaints of Back pm1 Pain, Nausea. 13:38 The patient presents with pain that is acute, with no known mechanism of injury. The pm1 symptoms are located in the low back. Onset: The symptoms/episode began/occurred 5 day(s) ago. The pain does not radiate. Associated signs and symptoms: Pertinent positives: nausea, burning with urination, Pertinent negatives: abdominal pain, chest pain, fever, shortness of breath. The problem was sustained UTI diagnosis. Patient was seen by her PCP for burning with urination for 1 day. Patient started some left over Bactrim prior to seeing Dr. Perez and she was diagnosed with a UTI. Patient uncertain if a urine culture was sent. He gave a prescription for Bactrim and she presented here yesterday with complaints of itching and rash. Patient was switched to quinolone and today she presents with continued low back pain, burning with urination and itching. No fever. Historical: - Allergies: 13:18 IV contrast; ll1 13:18 tramadol; ll1 - PMHx: 13:18 -anxiety; Diabetes - IDDM; Hypertension; Pancreatitis; Hypothyroidism; Gastroparesis; ll1 lactose intolerant; Chron's; - PSHx: 13:18 ; Cholecystectomy; ll1 - Immunization history:: Flu vaccine is not up to date. - Social history:: Smoking status: Reported history of juuling and/or vaping. Patient denies any tobacco usage or history of. ROS: 13:38 Constitutional: Negative for fever, chills, and weight loss, Cardiovascular: Negative pm1 for chest pain, palpitations, and edema. 13:38 MS/Extremity: Negative for injury and deformity, Skin: Negative for injury, rash, and discoloration, Neuro: Negative for headache, weakness, numbness, tingling, and seizure. 13:38 Respiratory: Positive for cough, Negative for shortness of breath, sputum production, wheezing. 13:38 Abdomen/GI: Positive for nausea, Negative for abdominal pain, vomiting, diarrhea, constipation. 13:38 Back: Positive for of the low back area, pain. 13:38 : Positive for burning with urination. Exam: 13:38 Constitutional: This is a well developed, well nourished patient who is awake, alert, pm1 and in no acute distress. Head/Face: Normocephalic, atraumatic. 13:38 MS/ Extremity: Pulses equal, no cyanosis. Neurovascular intact. Full, normal range of motion. 13:38 Cardiovascular: Exam negative for acute changes, Rate: normal, Rhythm: regular, Pulses: no pulse deficits are appreciated. 13:38 Respiratory: Exam negative for acute changes, respiratory distress, shortness of breath. 13:38 Abdomen/GI: Exam negative for acute changes, Inspection: abdomen appears normal, Palpation: abdomen is soft and non-tender, in all quadrants. 13:38 Back: pain, is absent, of the low back area, normal spinal alignment noted, CVA tenderness, is absent, vertebral tenderness, is not appreciated. 13:38 Neuro: Exam negative for acute changes, Orientation: is normal, Mentation: is normal, Motor: is normal, moves all fours, Gait: is steady, at a normal pace, without difficulty. Vital Signs: 13:19 BP 144 / 89; Pulse 116; Resp 18; Temp 97.9; Pulse Ox 100% ; Weight 90.72 kg; Height 5 ll1 ft. 8 in. (172.72 cm); Pain 7/10; 14:02 Pulse 104; Resp 16; Pulse Ox 99% ; sv 15:30 BP 132 / 86; Pulse 94; Resp 18; Pulse Ox 99% on R/A; ph 17:00 BP 128 / 87; Pulse 81; Resp 16; Temp 97.6; Pulse Ox 99% on R/A; ph 13:19 Body Mass Index 30.41 (90.72 kg, 172.72 cm) ll1 MDM: 13:23 Patient medically screened. pm1 14:30 ED course: Patient requesting a covid test because she reports inability to return to pm1 work if she does not get one. 15:03 Data reviewed: vital signs. Data interpreted: Pulse oximetry: on room air is 99 %. pm1 Interpretation: normal. 15:58 Counseling: I had a detailed discussion with the patient and/or guardian regarding: the pm1 historical points, exam findings, and any diagnostic results supporting the discharge/admit diagnosis, lab results, the need for outpatient follow up, to return to the emergency department if symptoms worsen or persist or if there are any questions or concerns that arise at home. 16:00 ED course: Patient just changed to quinolone yesterday. No fever, wbc wnls. Not pm1 sufficient time to call UTI treatment failed antibiotic therapy. Instructed the patient to continue Levaquin pending urine culture in 2-3 days. Patient educated on return precautions. 01/15 13:38 Order name: Basic Metabolic Panel; Complete Time: 14:48 pm1 01/15 13:38 Order name: CBC with Diff; Complete Time: 14:48 pm1 01/15 13:38 Order name: Hepatic Function; Complete Time: 14:48 pm1 01/15 13:38 Order name: Lipase; Complete Time: 14:48 pm1 01/15 13:38 Order name: Urine Microscopic Only; Complete Time: 15:46 pm1 01/15 14:09 Order name: CBC Smear Scan; Complete Time: 14:48 EDMS 01/15 14:27 Order name: COVID-19 ph 01/15 14:58 Order name: Urine Dipstick--Ancillary (enter results); Complete Time: 15:46 dh3 01/15 14:58 Order name: Urine --Ancillary (enter results); Complete Time: 15:46 dh3 01/15 15:42 Order name: Urine Culture EDFL 01/15 13:38 Order name: IV Saline Lock; Complete Time: 13:57 pm1 01/15 13:38 Order name: Labs collected and sent; Complete Time: 13:57 pm1 01/15 13:38 Order name: Urine Dipstick-Ancillary (obtain specimen); Complete Time: 14:59 pm1 01/15 13:38 Order name: Urine Test (obtain specimen); Complete Time: 14:59 pm1 Administered Medications: 13:56 Drug: Zofran (Ondansetron) 4 mg Route: IVP; Site: right antecubital; ph 14:00 Follow up: Response: No adverse reaction ph 14:30 Follow up: Response: No adverse reaction hb 13:57 Drug: NS 0.9% 1000 ml Route: IV; Rate: 1000 ml; Site: right antecubital; ph 15:30 Follow up: Response: No adverse reaction; IV Status: Completed infusion; IV Intake: ph 1000ml 15:05 CANCELLED (Physician Discretion): Cipro 500 mg PO once pm1 15:05 CANCELLED (Physician Discretion): Flagyl 500 mg 100 ml IVPB at 200 ml/hr once over 30 pm1 mins Disposition: 18:49 Co-signature as Attending Physician, Matt Mccoy MD Did not see or evaluate patient. ps1 Signature for administrative purposes. Available for consultation in ED during the patient encounter. . Disposition: 01/16/20 16:05 Discharged to Home. Impression: Urinary tract infection, site not specified, Pruritus - allergic reaction to bactrim. - Condition is Stable. - Discharge Instructions: Urinary Tract Infection, Adult, Pruritus. - Prescriptions for Medrol ([place]ot[place]) 4 mg Oral Tablets, Dose Pack - take 1 tablet by ORAL route as directed - follow package instructions; 1 packet. Zofran ODT 4 mg Oral tablet,disintegrating - place 1 tablet by TRANSLINGUAL route every 8 hours As needed; 12 tablet. Tylenol- Codeine #3 300-30 mg Oral Tablet - take 2 tablets by ORAL route every 6 hours As needed; 20 tablet. - Medication Reconciliation Form, Thank You Letter, Antibiotic Education, Prescription Opioid Use form. - Follow up: Emergency Department; When: As needed; Reason: Worsening of condition. Follow up: Camilo Perez MD; When: 2 - 3 days; Reason: Recheck today's complaints, Continuance of care, Re-evaluation by your physician. - Problem is new. - Symptoms have improved. Signatures: Dispatcher [employer] EDFL Dotty Menendez RN RN ph Paco Andino, AQUACULTURAL WORKER SUPERVISOR AQUACULTURAL WORKER SUPERVISOR pm1 Matt Mccoy MD MD ps1 Paula Alvarado RN RN ll1 Lisa Stoll RN hb Corrections: (The following items were deleted from the chart) 14:14 14:10 Protime (+INR) ordered. EDMS EDMS 14:14 14:10 PTT, Activated Partial Thromb ordered. EDFL EDMS 14:14 14:11 Fibrinogen ordered. EDFL EDMS 15:05 15:05 Cipro 500 mg PO once ordered. pm1 pm1 15:05 15:05 Flagyl 500 mg 100 ml IVPB at 200 ml/hr once over 30 mins ordered. pm1 pm1 16:37 16:05 01/16/2020 16:05 Discharged to Home. Impression: Urinary tract infection, site ph not specified; Pruritus - allergic reaction to bactrim. Condition is Stable. Forms are Medication Reconciliation Form, Thank You Letter, Antibiotic Education, Prescription Opioid Use. Follow up: Emergency Department; When: As needed; Reason: Worsening of condition. Follow up: Camilo Perez; When: 2 - 3 days; Reason: Recheck today's complaints, Continuance of care, Re-evaluation by your physician. Problem is new. Symptoms have improved. pm1
[2020-01-16 16:51] VITALS: BP 144/89; TEMP 97.9
[2020-01-16 16:52] VITALS: O2SAT 99
== END 2020-01-16 16:37 | disposition home or self-care (01) ==
LOC: ER 13:10
DX: N39.0 Urinary tract infection, site not specified (principal); Z20.828 Contact with and (suspected) exposure to other viral communicable diseases; L29.9 Pruritus, unspecified; Z88.1 Allergy status to other antibiotic agents; Z88.5 Allergy status to narcotic agent; Z91.041 Radiographic dye allergy status
CPT/HCPCS: 96361; 87088; 85025; 87086; 80048; 36415; 81025; 80076; 83690; 96374; 99284; U0002; J7030; J2405; 81003; 81015

== ENCOUNTER 2020-07-20 11:23 | Emergency (ER) | payer BC ==
[2020-07-20] MEDS ORDERED: MORPHINE 4 MG/ML SYR ONE ×2 (12:07→14:11)
[2020-07-20] MEDS ORDERED: NA CHLORIDE 0.9% 1,000 ML ONE (12:08)
[2020-07-20] MEDS ORDERED: ONDANSETRON 4 MG/2 ML VIAL ONE (12:08)
[2020-07-20 12:21] LABS: Absolute Lymphocytes (CBC) 0.8 K/uL (0.7-4.9); Basophils % 0.6 % (0-1.3); Hematocrit 44.5 % (36.0-45.0); Lymphocytes % 11.8 % (15.3-44.8); MPV 8.7 fL (7.6-11.3); RBC Red Blood Cell Count 5.05 M/uL (3.86-4.86)
[2020-07-20 12:35] LABS: Albumin 3.5 g/dL (3.4-5.0); Bilirubin Direct 0.1 mg/dL (0-0.2); Bilirubin Total 0.4 mg/dL (0.2-1.0); Potassium 3.8 mmol/L (3.5-5.1); Protein, Total 7.5 g/dL (6.4-8.2)
[2020-07-20] MEDS ORDERED: FENTANYL CITR 100 MCG/2 ML ONE (13:02)
--- NOTE | 2020-07-20 13:44 | RAD REPORT ---
EXAM DESCRIPTION: CT - Abdomen Pelvis Wo Contrast - 07/20/2020 1:28 pm CLINICAL HISTORY: Abdominal pain COMPARISON: 2019 TECHNIQUE: Computed axial tomography of the abdomen and pelvis was obtained. IV and oral contrast we re not requested. All CT scans are performed using dose optimization technique as appropriate and may include automated exposure control or mA/KV adjustment according to patient size. FINDINGS: The evaluation of solid organs, vessels and bowel is limited secondary to the lack of con trast administration. The liver, spleen, pancreas, adrenals and kidneys appear grossly normal. Cholecystectomy. The appendix is normal. There is no evidence of diverticulitis. Air bubble within the bladder. Air within vagina and cervical canal IMPRESSION: Air bubble within the bladder could be secondary to recent instrumentation. Infection ca n also result in this appearance. Air within the vagina and cervical canal may normal. Infection can also result in this appearance and should be correlated clinically
--- NOTE | 2020-07-20 13:47 | EDPHYS ---
Physician Documentation [facility] Name: Lila Mcgee Age: 39 yrs Sex: Female : 1980 Arrival Date: 07/20/2020 Time: 11:25 Bed 8 Private MD: Adilene Martinez ED Physician Serge Kramer HPI: 07/20 14:13 This 39 yrs old Female presents to ER via Ambulatory with complaints of kb Abdominal Pain. 14:13 The patient presents with abdominal pain in the upper abdomen. Onset: The kb symptoms/episode began/occurred 3 day(s) ago. The symptoms do not radiate. Associated signs and symptoms: Pertinent positives: nausea and vomiting, Pertinent negatives: constipation, diarrhea, fever. The symptoms are described as constant. Modifying factors: The symptoms are alleviated by nothing, the symptoms are aggravated by nothing. Severity of pain: At its worst the pain was moderate in the emergency department the pain is unchanged. The patient has experienced similar episodes in the past, a few times. The patient has been recently seen by a physician: the patient's primary care provider, earlier today, with similar presenting complaints, and was sent to the [facility] Emergency Department for further evaluation. Pt reports upper abd pain, nausea and vomiting for 3 days. Went to pcp and was told to come to the ER to rule out pancreatitis. . Historical: - Allergies: 11:43 IV contrast; sv 11:43 tramadol; sv - PMHx: 11:43 -anxiety; Pancreatitis; Hypothyroidism; Gastroparesis; Hypertension; lactose sv intolerant; Diabetes - IDDM; chron's; Bipolar disorder; 14:03 gastritis; sv - PSHx: 11:43 ; Cholecystectomy; sv - Immunization history:: Adult Immunizations up to date. - Social history:: Smoking status: Patient denies any tobacco usage or history of. Patient/guardian denies using alcohol, street drugs, IV drugs. ROS: 14:15 Constitutional: Negative for fever, chills, and weight loss, Cardiovascular: Negative kb for chest pain, palpitations, and edema, Respiratory: Negative for shortness of breath, cough, wheezing, and pleuritic chest pain, MS/Extremity: Negative for injury and deformity, Skin: Negative for injury, rash, and discoloration, Neuro: Negative for headache, weakness, numbness, tingling, and seizure. 14:15 Abdomen/GI: Positive for abdominal pain, nausea and vomiting, Negative for diarrhea, constipation. Exam: 14:15 Constitutional: This is a well developed, well nourished patient who is awake, alert, kb and in no acute distress. Head/Face: Normocephalic, atraumatic. Cardiovascular: Regular rate and rhythm with a normal S1 and S2. No gallops, murmurs, or rubs. No pulse deficits. Respiratory: Respirations even and unlabored. No increased work of breathing, no retractions or nasal flaring. Skin: Warm, dry with normal turgor. Normal color. MS/ Extremity: Pulses equal, no cyanosis. Neurovascular intact. Full, normal range of motion. Neuro: Awake and alert, GCS 15, oriented to person, place, time, and situation. Moves all extremities. Normal gait. 14:15 Abdomen/GI: Inspection: abdomen appears normal, Bowel sounds: normal, in all quadrants, Palpation: moderate abdominal tenderness, in the left upper quadrant. Vital Signs: 11:40 BP 111 / 83; Pulse 114; Resp 18; Temp 97.6; Pulse Ox 99% ; Weight 99.79 kg; Height 5 sv ft. 8 in. (172.72 cm); 13:07 BP 144 / 95; Pulse 110; Resp 20; Pulse Ox 99% ; sv 14:03 BP 122 / 87; Pulse 113; Resp 18; Pulse Ox 100% ; sv 11:40 Body Mass Index 33.45 (99.79 kg, 172.72 cm) sv MDM: 11:41 Patient medically screened. kb 14:19 Data reviewed: vital signs, nurses notes. Data interpreted: Pulse oximetry: on room air kb is 100 %. Interpretation: normal. 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 07/20 11:42 Order name: Basic Metabolic Panel kb 07/20 11:42 Order name: CBC with Diff kb 07/20 11:42 Order name: Hepatic Function; Complete Time: 12:42 kb 07/20 11:42 Order name: Lipase; Complete Time: 12:42 kb 07/20 11:42 Order name: [place]; Complete Time: 13:06 kb 07/20 11:42 Order name: Basic Metabolic Panel; Complete Time: 12:42 EDMS 07/20 11:42 Order name: CBC with Automated Diff; Complete Time: 12:25 EDMS 07/20 12:57 Order name: CT Abd/Pelvis - Without Contrast; Complete Time: 13:45 kb 07/20 11:42 Order name: IV Saline Lock; Complete Time: 12:10 kb 07/20 11:42 Order name: Labs collected and sent; Complete Time: 12:10 kb Administered Medications: 12:10 Drug: NS 0.9% 1000 ml Route: IV; Rate: 1000 ml; Site: left antecubital; sv 14:05 Follow up: Response: No adverse reaction; IV Status: Completed infusion; IV Intake: sv 1000ml 12:10 Drug: Zofran (Ondansetron) 4 mg Route: IVP; Site: left antecubital; sv 12:48 Follow up: Response: No adverse reaction sv 12:10 Drug: morphine 4 mg {Note: rass2.} Route: IVP; Site: left antecubital; sv 12:48 Follow up: Response: No adverse reaction; No change in condition; RASS: Agitated (+2) sv 12:48 Drug: fentaNYL (PF) 25 mcg Route: IVP; Site: left antecubital; ld1 14:05 Follow up: Response: No adverse reaction; RASS: Restless (+1) sv 14:04 Drug: Reglan (metoCLOPramide) 10 mg Route: IVP; Site: left antecubital; sv 14:24 Follow up: Response: No adverse reaction sv 14:04 Drug: morphine 4 mg {Note: rass1.} Route: IVP; Site: left antecubital; sv 14:24 Follow up: Response: No adverse reaction; RASS: Alert and Calm (0) sv 14:04 Drug: GI Cocktail without - (Maalox Suspension 30 ml, Lidocaine Liquid 2 % 15 sv ml) Route: PO; 14:24 Follow up: Response: No adverse reaction sv Disposition: 07/21 06:54 Co-signature as Attending Physician, Serge Kramer MD I agree with the assessment and kdr plan of care. Disposition: 07/20/20 13:46 Discharged to Home. Impression: Upper abdominal pain, unspecified. - Condition is Stable. - Discharge Instructions: Abdominal Pain, Adult, [id number]. - Prescriptions for Bentyl 20 mg Oral Tablet - take 1 tablet by ORAL route every 6 hours As needed; 20 tablet. Reglan 10 mg Oral Tablet - take 1 tablet by ORAL route every 6 hours take 30 minutes before meals and at bedtime; 20 tablet. - Medication Reconciliation Form, Thank You Letter, Antibiotic Education, Prescription Opioid Use form. - Follow up: Emergency Department; When: As needed; Reason: Worsening of condition. Follow up: Private Physician; When: 2 - 3 days; Reason: Recheck today's complaints, Continuance of care, Re-evaluation by your physician. Signatures: Dispatcher [employer] EDOK Courtney Gage, KELLI-C BROACH TROUBLE SHOOTER-Adilene Trent, JEANMARIE RN sv Serge Kramer MD MD [facility] Lisa Stoll RN RN Rachel Salguero RN RN ld1 Corrections: (The following items were deleted from the chart) 07/20 12:51 12:43 Abdomen Limited+[id number] ordered. [facility] 14:24 13:46 07/20/2020 13:46 Discharged to Home. Impression: Upper abdominal pain, hb unspecified. Condition is Stable. Forms are Medication Reconciliation Form, Thank You Letter, Antibiotic Education, Prescription Opioid Use. Follow up: Emergency Department; When: As needed; Reason: Worsening of condition. Follow up: Private Physician; When: 2 - 3 days; Reason: Recheck today's complaints, Continuance of care, Re-evaluation by your physician. kb
--- NOTE | 2020-07-20 13:47 | ER ---
Nurse's Notes [facility] Name: Lila Mcgee Age: 39 yrs Sex: Female : 1980 Arrival Date: 07/20/2020 Time: 11:25 Bed 8 Private MD: Adilene Martinez Diagnosis: Upper abdominal pain, unspecified Presentation: 07/20 11:40 Chief complaint: Patient states: LUQ pain, n/v x 3 days. Initial Sepsis Screen: Does sv the patient meet any 2 criteria? HR > 90 bpm. No. Patient's initial sepsis screen is negative. Does the patient have a suspected source of infection? No. Patient's initial sepsis screen is negative. Risk Assessment: Do you want to hurt yourself or someone else? Patient reports no desire to harm self or others. Onset of symptoms was July 2020. 11:40 Method Of Arrival: Ambulatory sv 11:40 Acuity: [place] 2 sv 11:42 Coronavirus screen: Client denies travel out of the [place] in the last 14 days. At this sv time, the client does not indicate any symptoms associated with coronavirus-19. Ebola Screen: No symptoms or risks identified at this time. Triage Assessment: 11:40 General: Appears in no apparent distress. uncomfortable, well developed, Behavior is sv calm, cooperative, appropriate for age. Pain: Complains of pain in left upper quadrant Quality of pain is described as sharp, Is continuous. Neuro: Level of Consciousness is awake, alert, obeys commands, Oriented to person, place, time, situation, Moves all extremities. Full function Gait is steady. Respiratory: Airway is patent Respiratory effort is even, unlabored, Respiratory pattern is regular, symmetrical. GI: Reports upper abdominal pain, nausea, vomiting. Historical: - Allergies: 11:43 IV contrast; sv 11:43 tramadol; sv - PMHx: 11:43 -anxiety; Pancreatitis; Hypothyroidism; Gastroparesis; Hypertension; lactose sv intolerant; Diabetes - IDDM; chron's; Bipolar disorder; 14:03 gastritis; sv - PSHx: 11:43 ; Cholecystectomy; sv - Immunization history:: Adult Immunizations up to date. - Social history:: Smoking status: Patient denies any tobacco usage or history of. Patient/guardian denies using alcohol, street drugs, IV drugs. Screenin:44 Abuse screen: Denies threats or abuse. Denies injuries from another. Nutritional sv screening: No deficits noted. Tuberculosis screening: No symptoms or risk factors identified. Fall Risk None identified. Assessment: 12:48 Reassessment: Patient appears in no apparent distress at this time. No changes from sv previously documented assessment. Patient and/or family updated on plan of care and expected duration. Pain level reassessed. Patient is alert, oriented x 3, equal unlabored respirations, skin warm/dry/pink. 13:30 Reassessment: Patient appears in no apparent distress at this time. Patient and/or sv family updated on plan of care and expected duration. Pain level reassessed. Patient is alert, oriented x 3, equal unlabored respirations, skin warm/dry/pink. Vital Signs: 11:40 BP 111 / 83; Pulse 114; Resp 18; Temp 97.6; Pulse Ox 99% ; Weight 99.79 kg; Height 5 sv ft. 8 in. (172.72 cm); 13:07 BP 144 / 95; Pulse 110; Resp 20; Pulse Ox 99% ; sv 14:03 BP 122 / 87; Pulse 113; Resp 18; Pulse Ox 100% ; sv 11:40 Body Mass Index 33.45 (99.79 kg, 172.72 cm) sv ED Course: 11:25 Patient arrived in ED. ds1 11:26 Adilene Martinez is Private Physician. ds1 11:32 [facility]C [facility] kb 11:32 Serge Kramer MD is Attending Physician. kb 11:40 Adilene Vega RN is Primary Nurse. sv 11:42 Triage completed. sv 11:44 Arm band placed on. sv 11:44 Patient has correct armband on for positive identification. Bed in low position. Call sv light in reach. Pulse ox on. NIBP on. 12:10 Basic Metabolic Panel Sent. sv 12:10 CBC with Diff Sent. sv 13:[address] Scan. sv 13:28 CT Abd/Pelvis - Without Contrast In Process Unspecified. EDMS 14:24 No provider procedures requiring assistance completed. IV discontinued, intact, hb bleeding controlled, No redness/swelling at site. Administered Medications: 12:10 Drug: NS 0.9% 1000 ml Route: IV; Rate: 1000 ml; Site: left antecubital; sv 14:05 Follow up: Response: No adverse reaction; IV Status: Completed infusion; IV Intake: sv 1000ml 12:10 Drug: Zofran (Ondansetron) 4 mg Route: IVP; Site: left antecubital; sv 12:48 Follow up: Response: No adverse reaction sv 12:10 Drug: morphine 4 mg {Note: rass2.} Route: IVP; Site: left antecubital; sv 12:48 Follow up: Response: No adverse reaction; No change in condition; RASS: Agitated (+2) sv 12:48 Drug: fentaNYL (PF) 25 mcg Route: IVP; Site: left antecubital; ld1 14:05 Follow up: Response: No adverse reaction; RASS: Restless (+1) sv 14:04 Drug: Reglan (metoCLOPramide) 10 mg Route: IVP; Site: left antecubital; sv 14:24 Follow up: Response: No adverse reaction sv 14:04 Drug: morphine 4 mg {Note: rass1.} Route: IVP; Site: left antecubital; sv 14:24 Follow up: Response: No adverse reaction; RASS: Alert and Calm (0) sv 14:04 Drug: GI Cocktail without - (Maalox Suspension 30 ml, Lidocaine Liquid 2 % 15 sv ml) Route: PO; 14:24 Follow up: Response: No adverse reaction sv Intake: 14:05 IV: 1000ml; Total: 1000ml. sv Outcome: 13:46 Discharge ordered by . 14:24 Discharged to home ambulatory, with significant other. hb 14:24 Condition: stable 14:24 Discharge instructions given to patient, Instructed on discharge instructions, follow up and referral plans. medication usage, Demonstrated understanding of instructions, follow-up care, medications, Prescriptions given X 2. 14:24 Patient left the ED. Signatures: Dispatcher [employer] EDCourtney Samuels, JUAREZ PEREIRA-Adilene Trent RN RN Lindsey Landeros ds1 Lisa Stoll RN RN Rachel Salguero RN RN ld1
[2020-07-20] MEDS ORDERED: LIDOCAINE VISCOUS 2% SOLN 15 ML UDC ONE (14:11)
[2020-07-20] MEDS ORDERED: MAGNES/ALUMIN/SIMET 30ML UCUP ONE (14:11)
[2020-07-20] MEDS ORDERED: METOCLOPRAMIDE 10 MG/2mL INJ ONE (14:11)
[2020-07-20 14:29] VITALS: TEMP 97.6
[2020-07-20 14:32] VITALS: BP 122/87; O2SAT 100
== END 2020-07-20 14:24 | disposition home or self-care (01) ==
LOC: ER 11:23
DX: R10.10 Upper abdominal pain, unspecified (principal); R11.2 Nausea with vomiting, unspecified; I10 Essential (primary) hypertension; Z88.5 Allergy status to narcotic agent; Z91.041 Radiographic dye allergy status
CPT/HCPCS: 96361; 85025; 80048; 36415; 80178; 80076; 83690; 74176; 96375; 96374; 99284; J2765; J3010; J7030; J2405